=== PATIENT | female | born 1980 | race African-American/Black ===

== ENCOUNTER 2019-04-17 14:11 | Emergency (ER) | payer MEDICARE, MEDICAID ==
[~2019-04-17] VITALS: Ht 165.1 cm; Wt 63.6 kg
[~2019-04-17 14:11] MED LIST: PALI3TAB5 PO
[2019-04-17] MEDS ORDERED: OLANZapine 5mg rapidly disint. tablet PO ONE (15:20)
[2019-04-17 15:53] LABS: BASOPHILS # (AUTO) 0.1 X10'3 (0-0.2); BASOPHILS % (AUTO) 0.7 % (0-1); EOSINOPHILS % (AUTO) 0.3 % (0-6); HEMATOCRIT 41.7 % (35.0-45.0); HEMOGLOBIN 13.5 g/dl (12.0-16.0); LYMPHOCYTES # (AUTO) 1.5 X10'3 (1.1-4.8); LYMPHOCYTES % (AUTO) 14.2 % (21-51); MEAN CORPUSCULAR HEMOGLOBIN 23.8 PG (27.0-31.0); MEAN CORPUSCULAR HGB CONC 32.4 g/dL (33.0-36.5); MEAN CORPUSCULAR VOLUME 73.4 FL (78-98); MONOCYTES # (AUTO) 0.6 X10'3 (0-0.9); MONOCYTES % (AUTO) 5.9 % (2-12); NEUTROPHILS # (AUTO) 8.3 X10'3 (1.8-7.7); NEUTROPHILS % (AUTO) 78.9 % (42-75); PLATELET COUNT 358 X10'3 (140-440); RED BLOOD COUNT 5.68 X10'6 (4.20-5.60); RED CELL DISTRIBUTION WIDTH 18.3 % (11.5-14.5); WHITE BLOOD COUNT 10.5 X10'3 (4.5-11.0)
[2019-04-17 16:12] LABS: ALANINE AMINOTRANSFERASE 25 U/L (12-78); ALBUMIN 4.3 G/DL (3.4-5.0); ALBUMIN/GLOBULIN RATIO 0.8 (1.1-1.5); ALKALINE PHOSPHATASE 141 IU/L (46-116); ANION GAP 12 (8-16); ASPARTATE AMINO TRANSFERASE 18 U/L (10-37); BILIRUBIN,TOTAL 0.4 MG/DL (0.1-1.0); BLOOD UREA NITROGEN 12 MG/DL (7-18); CALCIUM 9.9 MG/DL (8.5-10.1); CHLORIDE 103 MMOL/L (99-107); CREATININE 0.86 MG/DL (0.40-0.90); GLUCOSE 103 MG/DL (70-104); SODIUM 142 MMOL/L (135-145); TOTAL CARBON DIOXIDE 27.1 MMOL/L (24-32); TOTAL PROTEIN 9.8 G/DL (6.4-8.2); eGFR 89 ML/MIN
[2019-04-17] MEDS ORDERED: magnesium oxide 400mg tablet PO ONE (16:15)
[2019-04-17] MEDS ORDERED: potassium Cl 20 mEq SR tablet PO ONE ×2 (16:15→16:35)
[2019-04-17 16:16] VITALS: BP 129/91
[2019-04-17 16:21] LABS: ETHANOL < 0.010 GM/DL (0.0-0.010)
[2019-04-17 16:29] LABS: MAGNESIUM 2.2 MG/DL (1.5-2.4)
[2019-04-17] MEDS ORDERED: UNABLE TO OBTAIN (20:55)
== END 2019-04-17 17:30 | disposition left against medical advice (07) ==
LOC: ER 14:12
DX: F23 Brief psychotic disorder (principal)
CPT/HCPCS: 36415; 80053; 80320; 82948; 83735; 84443; 85025; 99283

== ENCOUNTER 2019-04-17 18:44 | Emergency (ER) | payer MEDICARE, MEDICAID ==
[~2019-04-17] VITALS: Ht 160 cm; Wt 68.2 kg
--- NOTE | 2019-04-17 19:59 | NUR ---
PT LEFT LOBBY BEFORE BEING TAKEN BACK TO ROOM. PT THEN RETURNED APPROX 25 MINUTES LATER AND STUMBLED THROUGH THE LOBBY. PT THEN FELL AND HIT HEAD ON DOOR ACCORDING TO WITNESS REPORTS FROM THE LOBBY. C COLLAR PLACED ON PT AND MD AND CHARGE NURSE SACHIN MADE AWARE OF INCIDENT.
--- NOTE | 2019-04-17 20:05 | NUR ---
EDMD NICHOLE AND ROHINI MADE AWARE OF PT FALL. EDMD VARELA PLACED CT ORDERS.
[2019-04-17] MEDS ORDERED: LORazepam 2 mg/ml vial IM ONE (20:50)
[2019-04-17] MEDS ORDERED: haloperidol lactate 5mg/ml inj IM ONE (20:50)
[2019-04-17] MEDS ORDERED: UNABLE TO OBTAIN (20:55)
[2019-04-17 21:08] LABS: BASOPHILS # (AUTO) 0.1 X10'3 (0-0.2); BASOPHILS % (AUTO) 0.8 % (0-1); EOSINOPHILS % (AUTO) 0.1 % (0-6); HEMATOCRIT 39.1 % (35.0-45.0); HEMOGLOBIN 12.7 g/dl (12.0-16.0); LYMPHOCYTES # (AUTO) 2.6 X10'3 (1.1-4.8); LYMPHOCYTES % (AUTO) 21.1 % (21-51); MEAN CORPUSCULAR HEMOGLOBIN 23.7 PG (27.0-31.0); MEAN CORPUSCULAR HGB CONC 32.4 g/dL (33.0-36.5); MEAN CORPUSCULAR VOLUME 73.2 FL (78-98); MEAN PLATELET VOLUME 8.1 FL (7.4-10.4); MONOCYTES % (AUTO) 8.3 % (2-12); NEUTROPHILS # (AUTO) 8.6 X10'3 (1.8-7.7); NEUTROPHILS % (AUTO) 69.7 % (42-75); PLATELET COUNT 359 X10'3 (140-440); RED BLOOD COUNT 5.34 X10'6 (4.20-5.60); RED CELL DISTRIBUTION WIDTH 18.4 % (11.5-14.5); WHITE BLOOD COUNT 12.3 X10'3 (4.5-11.0)
[2019-04-17 21:24] LABS: eGFR 82 ML/MIN
[2019-04-17 21:33] LABS: ALANINE AMINOTRANSFERASE 22 U/L (12-78); ALBUMIN 4.1 G/DL (3.4-5.0); ALBUMIN/GLOBULIN RATIO 0.8 (1.1-1.5); ALKALINE PHOSPHATASE 136 IU/L (46-116); ANION GAP 16 (8-16); ASPARTATE AMINO TRANSFERASE 20 U/L (10-37); BILIRUBIN,TOTAL 0.4 MG/DL (0.1-1.0); BLOOD UREA NITROGEN 15 MG/DL (7-18); BUN/CREATININE RATIO 16.3 (6.6-38.0); CALCIUM 9.6 MG/DL (8.5-10.1); CHLORIDE 101 MMOL/L (99-107); CREATININE 0.92 MG/DL (0.40-0.90); ETHANOL < 0.010 GM/DL (0.0-0.010); GLUCOSE 127 MG/DL (70-104); SODIUM 142 MMOL/L (135-145); TOTAL CARBON DIOXIDE 25.2 MMOL/L (24-32); TOTAL PROTEIN 9.3 G/DL (6.4-8.2)
[2019-04-17] MEDS ORDERED: potassium Cl 10 mEq/100mL bag IV ONE (21:35)
[2019-04-17 21:36] LABS: ACETAMINOPHEN < 2.0 UG/ML (10-30)
--- NOTE | 2019-04-17 21:58 | NUR ---
Pt placed in green scrubs and belongings inventoried.
[2019-04-17] MEDS ORDERED: POTASSIUM BICARB 20meq eff tab 20 MEQ TABLET.EFF PO SCH (22:10)
--- NOTE | 2019-04-17 22:10 | NUR ---
Pt ambulatory with steady gait and with two person assist to the overflow area for further monitoring until mental health evaluation can be obtained.
--- NOTE | 2019-04-17 22:26 | NUR ---
Pt refused IV access, order for PO potassium obtained. Pt agreed to take PO potassium instead. Pt medicated as ordered with ativan and haldol.
[2019-04-17 22:30] LABS: URINE HCG NEGATIVE (NEG)
[2019-04-17 22:31] LABS: CLARITY,URINE SLIGHTLY CLOUDY (Clear); COLOR,URINE YELLOW (Yellow); GLUCOSE, URINE NEGATIVE (Neg); KETONES,URINE 15 mg/dl (Neg); LEUKOCYTE ESTERASE ,URINE NEGATIVE (Neg); NITRITES, URINE NEGATIVE (Neg); OCCULT BLOOD,URINE LARGE (Neg); PROTEIN,URINE 100 mg/dl (Neg); UROBILINOGEN,URINE 0.2 E.U/dL (0.2-1.0)
--- NOTE | 2019-04-17 22:39 | NUR ---
PT recieved in overflow at 2230. Pt drank 40 mEq effervescent. Potassium level currently 3.0. Urine was obtained and sent to lab.
[2019-04-17 22:42] LABS: URINE AMPHETAMINE SCREEN NEGATIVE (Neg); URINE BARBITUATE SCREEN NEGATIVE (Neg); URINE BENZODIAZEPINES SCREEN NEGATIVE (Neg); URINE CANNABINOID SCREEN NEGATIVE (Neg); URINE COCAINE SCREEN NEGATIVE (Neg); URINE METHADONE SCREEN NEGATIVE (Neg); URINE OPIATE SCREEN NEGATIVE (Neg); URINE PHENCYCLIDINE SCREEN NEGATIVE (Neg)
[2019-04-17 22:43] LABS: UA COLLECTION TYPE NON-SPECIFIED
[2019-04-17 22:44] LABS: BACTERIA,URINE 1+ /HPF (Neg); RBC,URINE 0-2 /HPF (0-2); SQUAMOUS EPITHELIAL CELL,UR MODERATE /LPF (FEW); WBC,URINE 0-4 /HPF (0-4)
--- NOTE | 2019-04-17 23:29 | NUR ---
Patient's packet was sent to [facility] 70[facility]
--- NOTE | 2019-04-18 00:56 | NUR ---
Pt woke up abruptly screaming. Pt was redirectable and calmed down once she was told she was in the hospital. Pt reassured, and fell back asleep.
--- NOTE | 2019-04-18 03:12 | NUR ---
Pt is sleeping on R side RR 12. No signs or symptoms of distress at this time.
--- NOTE | 2019-04-18 05:24 | NUR ---
Pt sleeping soundly on back. RR 14.
--- NOTE | 2019-04-18 06:32 | NUR ---
Pt is resting in bed peacefully at this time. No distress observed.
--- NOTE | 2019-04-18 06:47 | NUR ---
Pt is unable to answer questions for the [facility] Suicide Assessment. She denies SI
--- NOTE | 2019-04-18 08:40 | NUR ---
Pt is sitting up in bed eating breakfast. She answers some questions with one word answers "yees", or "No". No distress observed.
--- NOTE | 2019-04-18 08:55 | NUR ---
electronic service technician at bed side. Pt refusing lab draw.
--- NOTE | 2019-04-18 10:42 | NUR ---
[facility], Alisa, here and states that pt has a child. Called [facility] and this child is in their care. Pt is resting in bed peacefully on the right side. Will continue to monitor.
--- NOTE | 2019-04-18 10:46 | NUR ---
Breaking primary RN, pt is supine in bed, eyes closed, regular breathing present, no s/s of anxiety
--- NOTE | 2019-04-18 11:00 | NUR ---
TEO Cuellar from [facility] is at bedside attempting to assess patient.
--- NOTE | 2019-04-18 12:27 | NUR ---
Breaking primary RN, Pt is supine in bed, eyes closed, appears to be sleeping, regular, unlabored breathing present
--- NOTE | 2019-04-18 12:44 | NUR ---
Alisa from [facility] said that someone else from [facility] will be back to re eval patient as she would not talk to her,
--- NOTE | 2019-04-18 13:49 | NUR ---
Pt is laying in bed in the supine position resting peacefully. No distress observed. Pt was told that lunch is at her bedside, but Pt refuses to eat at this time.
--- NOTE | 2019-04-18 15:50 | NUR ---
Patient ambulated self to restroom. She is now resting in bed peacefully.
--- NOTE | 2019-04-18 17:50 | NUR ---
Patient is resting in bed peacefully at this time. No distress observed.
--- NOTE | 2019-04-18 19:17 | NUR ---
Pt is currently sleeping comfortably on her right side. She has visible rise and fall of her respirations. Pt does not show signs of pain or distress. She is in direct eyesight of the nursing station.
--- NOTE | 2019-04-18 21:03 | NUR ---
pt amb with slightly unsteady gait to restroom
--- NOTE | 2019-04-18 21:17 | NUR ---
pt agreed to have blood drawn, mine laborer at bedside
--- NOTE | 2019-04-18 23:27 | NUR ---
pt is sleeping, resp even and unlabored
[2019-04-19] MEDS ORDERED: potassium Cl 10 mEq/100mL bag IV ONE (01:00)
--- NOTE | 2019-04-19 08:19 | NUR ---
PT RESTING IN BED. BREAKFAST TRAY PROVIDED. PT WOKEN UP FOR A PRESSURE RECHECK. PT COOPERATIVE WITH ASSESSMENT. NO S/S OF DISTRESS OR PAIN.
--- NOTE | 2019-04-19 08:45 | NUR ---
[facility] AT BEDSIDE.
--- NOTE | 2019-04-19 10:26 | NUR ---
PT CONTINUES TO REST IN BED AFTER MAKING A PHONE CALL EARLIER. NO S/S OF DISTRESS OR PAIN AT THIS TIME. WILL CONTINUE TO MONITOR.
--- NOTE | 2019-04-19 11:28 | NUR ---
PT UP TO RESTROOM. INFORMED PT ON PLAN OF CARE. PT GOING TO BE PLACED ON 5150 ACCORDING TO [facility], LOOKING FOR PLACEMENT.
--- NOTE | 2019-04-19 13:16 | NUR ---
Pt given lunch tray. Pt is sitting upright on the bed eating lunch.
--- NOTE | 2019-04-19 14:11 | NUR ---
Pt resting comfortable on the bed with even and unlabored respirations. Pt remains under constant observation.
--- NOTE | 2019-04-19 15:10 | NUR ---
Pt resting, no complaints, continuing to monitor. Awaiting placement.
--- NOTE | 2019-04-19 16:10 | NUR ---
Pt is resting with even and unlabored respirations. Pt has no change in condition.
--- NOTE | 2019-04-19 16:50 | NUR ---
GAYATHRI Diaz from [facility] phoned to receive report and states that they will accept her for admission to the floor.
--- NOTE | 2019-04-19 17:33 | NUR ---
Pt is resting in a side-lying position of comfort on the bed with even and unlabored respirations. Pt has no distress noted.
[2019-04-19 17:45] VITALS: BP 118/83
--- NOTE | 2019-04-19 18:23 | NUR ---
Report given to GAYATHRI Real. Pt is to be transported to the [facility] shortly.
--- NOTE | 2019-04-19 19:45 | NUR ---
Received report and assumed care of patient from GAYATHRI López.
--- NOTE | 2019-04-19 20:17 | NUR ---
DR NATARAJAN MADE AWARE PATIENT HAS BEEN ACCEPTED TO [facility], TO ENTER DC ORDERS.
[2019-04-19] MEDS ORDERED: NO HOME MEDS (20:23)
[2019-04-27] MEDS ORDERED: PALI3TAB5 PO (14:14)
[2019-04-27] MEDS ORDERED: DOCU100C40 PO (14:14)
== END 2019-04-19 21:04 ==
LOC: ER 18:45
DX: F29 Unspecified psychosis not due to a substance or known physiological condition (principal); E87.6 Hypokalemia; R41.82 Altered mental status, unspecified
CPT/HCPCS: 36415; 70450; 72125; 80053; 80305; 80320; 80329; 81001; 81025; 84132; 84443; 85025; 93005; 96372; 99285; J1630; J2060; 99284

== ENCOUNTER 2020-09-11 08:01 | Emergency (ER) | payer MEDICARE, MEDICAID ==
[~2020-09-11] VITALS: Ht 165.1 cm; Wt 75.0 kg
[~2020-09-11 08:01] MED LIST changes: +DOCU100C40 PO; +NO HOME MEDS
[2020-09-11 08:53] LABS: BASOPHILS # (AUTO) 0.1 X10'3 (0-0.2); BASOPHILS % (AUTO) 0.7 % (0-1); EOSINOPHILS % (AUTO) 0.2 % (0-6); HEMATOCRIT 43.2 % (35.0-45.0); HEMOGLOBIN 13.4 g/dl (12.0-16.0); LYMPHOCYTES # (AUTO) 1.8 X10'3 (1.1-4.8); LYMPHOCYTES % (AUTO) 15.4 % (21-51); MEAN CORPUSCULAR HEMOGLOBIN 22.4 PG (27.0-31.0); MEAN CORPUSCULAR HGB CONC 30.9 g/dL (33.0-36.5); MEAN CORPUSCULAR VOLUME 72.4 FL (78-98); MEAN PLATELET VOLUME 7.9 FL (7.4-10.4); MONOCYTES # (AUTO) 0.8 X10'3 (0-0.9); MONOCYTES % (AUTO) 6.3 % (2-12); NEUTROPHILS # (AUTO) 9.3 X10'3 (1.8-7.7); NEUTROPHILS % (AUTO) 77.4 % (42-75); PLATELET COUNT 420 X10'3 (140-440); RED BLOOD COUNT 5.97 X10'6 (4.20-5.60); RED CELL DISTRIBUTION WIDTH 18.1 % (11.5-14.5)
[2020-09-11 09:04] LABS: URINE HCG NEGATIVE (NEG)
[2020-09-11 09:09] LABS: CLARITY,URINE SLIGHTLY CLOUDY (Clear); COLOR,URINE YELLOW (Yellow); GLUCOSE, URINE NEGATIVE (Neg); KETONES,URINE 15 mg/dl (Neg); LEUKOCYTE ESTERASE ,URINE NEGATIVE (Neg); NITRITES, URINE NEGATIVE (Neg); OCCULT BLOOD,URINE NEGATIVE (Neg); PROTEIN,URINE 100 mg/dl (Neg); UROBILINOGEN,URINE 0.2 E.U/dL (0.2-1.0)
[2020-09-11 09:10] LABS: UA COLLECTION TYPE CLN CATCH MIDSTREAM
[2020-09-11 09:11] LABS: SQUAMOUS EPITHELIAL CELL,UR MANY /LPF (FEW)
[2020-09-11 09:12] LABS: BACTERIA,URINE 2+ /HPF (Neg); RBC,URINE 0-2 /HPF (0-2); URINE AMPHETAMINE SCREEN NEGATIVE (Neg); URINE BARBITUATE SCREEN NEGATIVE (Neg); URINE BENZODIAZEPINES SCREEN NEGATIVE (Neg); URINE CANNABINOID SCREEN NEGATIVE (Neg); URINE COCAINE SCREEN NEGATIVE (Neg); URINE METHADONE SCREEN NEGATIVE (Neg); URINE OPIATE SCREEN NEGATIVE (Neg); URINE PHENCYCLIDINE SCREEN NEGATIVE (Neg); WBC,URINE 0-4 /HPF (0-4)
[2020-09-11 09:21] LABS: ALBUMIN 4.1 G/DL (3.4-5.0); ASPARTATE AMINO TRANSFERASE 4 U/L (10-37); BLOOD UREA NITROGEN 26 MG/DL (7-18); BUN/CREATININE RATIO 22.4 (6.6-38.0); CREATININE 1.16 MG/DL (0.40-0.90); ETHANOL < 0.010 GM/DL (0.0-0.010); GLUCOSE 108 MG/DL (70-104); POTASSIUM 3.4 MMOL/L (3.5-5.1); TOTAL CARBON DIOXIDE 19.9 MMOL/L (24-32); eGFR 62 ML/MIN
[2020-09-11 09:40] LABS: PLATELET ESTIMATE NORMAL
[2020-09-11 09:55] LABS: POLYCHROMASIA FEW
[2020-09-11 09:56] LABS: SCHISTOCYTES FEW
[2020-09-11 09:57] LABS: GIANT PLATELET FEW; LARGE PLATELETS FEW
[2020-09-11 09:58] LABS: ALANINE AMINOTRANSFERASE 20 U/L (12-78); ALBUMIN/GLOBULIN RATIO 0.7 (1.1-1.5); ALKALINE PHOSPHATASE 132 IU/L (46-116); ANION GAP 17 (8-16); CALCIUM 10.3 MG/DL (8.5-10.1); CHLORIDE 103 MMOL/L (99-107); SODIUM 140 MMOL/L (135-145)
[2020-09-11] MEDS ORDERED: normal saline 1000ML IV soln IVB ONE (10:20)
[2020-09-11] MEDS ORDERED: potassium Cl 20 mEq SR tablet PO STA (10:20)
--- NOTE | 2020-09-11 13:30 | NUR ---
PACKET FAXED TO [facility]
--- NOTE | 2020-09-11 16:15 | NUR ---
Pt was evaluated by Black from [facility] and placed on 5150
--- NOTE | 2020-09-11 18:30 | NUR ---
Report given to Nikos from [facility] in [place] for possible placement. Facility requesting updated med rec and covid swab.
--- NOTE | 2020-09-11 19:14 | NUR ---
Pt is laying in bed resting quietly. Pt has thought blocking, takes several minutes to respond to questions, and answers questions minimally.
--- NOTE | 2020-09-11 19:31 | NUR ---
DC'd IV, pt tolerated well.
--- NOTE | 2020-09-12 00:56 | NUR ---
pt asleep in bed, resting quietly. rr even and unlabored no s/s distress.
--- NOTE | 2020-09-12 03:30 | NUR ---
pt woke and yelled out "Jehovah!" and went back to sleep.
--- NOTE | 2020-09-12 06:39 | NUR ---
Patient appears to be sleeping prone. No distress observed. Continue to monitor.
--- NOTE | 2020-09-12 07:55 | NUR ---
Patient sleeping. No distress observed. Continue to monitor.
--- NOTE | 2020-09-12 08:55 | NUR ---
Patient awoke and stood up and started walking with an unsteady gait the wrong way to the restroom. RN and Tech jumped up to assist patient. RN held patient's scrub top and pants from the back so she wouldn't fall. Patient was given the walker but would not use it. Patient is malodorous. RN and tech held onto patient and directed her to the BR. At one point patient intentionally attempted to fall back/sit down but RN and Tech did not let her go to the ground and pulled her up. RN and tech went into the BR with patient. RN assisted patient is pulling down her pants and sitting on the toilet. Patient urinated a large amount. Patient wiped herself and stood to pull up her pants. RN and tech assisted patient to wash her hands and face. RN and tech walked patient back to her room. Patient sat on the side of the bed and RN assisted patient in getting her breakfast ready. RN gave patient juice but she refused to drink. Patient took one bite of her eggs and then laid down. In the entire time patient was up she just said "no" to apple juice and "no" to salt. Those were the only time patient spoke. Reported to SAMANTHA Clark [facility]. Continue to monitor.
[2020-09-12] MEDS ORDERED: OLANZapine 5mg rapidly disint. tablet PO ONE (09:10)
--- NOTE | 2020-09-12 10:22 | NUR ---
Patient's lab drawn by hospital librarian, Karly. Patient allowed and RN also at bedside. Patient answered her questions appropriately. Continue to monitor.
--- NOTE | 2020-09-12 10:40 | NUR ---
Patient appears to be doing better. Patient ambulatory, steady gait to BR with bath wipes in hand. No distress observed. Continue to monitor.
[2020-09-12 10:47] LABS: ALBUMIN 3.2 G/DL (3.4-5.0); ANION GAP 11 (8-16); BLOOD UREA NITROGEN 13 MG/DL (7-18); BUN/CREATININE RATIO 18.8 (6.6-38.0); CALCIUM 9.1 MG/DL (8.5-10.1); CHLORIDE 106 MMOL/L (99-107); CREATININE 0.69 MG/DL (0.40-0.90); GLUCOSE 149 MG/DL (70-104); POTASSIUM 3.7 MMOL/L (3.5-5.1); SODIUM 139 MMOL/L (135-145); TOTAL CARBON DIOXIDE 22.3 MMOL/L (24-32); eGFR > 90 ML/MIN
--- NOTE | 2020-09-12 12:30 | NUR ---
Patient sleeping on left side. No distress observed. Continue to monitor.
--- NOTE | 2020-09-12 13:45 | NUR ---
Patient is awake and RN walked over to speak to patient. RN advised patient that her lunch tray is on her bedside table. RN asked patient if she was ready to eat but patient did not respond but looked at RN. RN advised patient that she will assist her and re-heat her food when she is ready. No response. Continue to monitor.
--- NOTE | 2020-09-12 14:50 | NUR ---
Patient got up and sitting on the side of her bed. RN went to push fluids since patient has hardly eaten today and only drank her apple juice this morning. Patient saw RN and got up and started walking around with unsteady gait. Then patient mad a run for it down the nick by [facility] office. [employer] ran after her and patient met 2 security guards in the nick way who walked patient back. Patient is no laying in bed awake but her eyes are closed. Continue to monitor.
--- NOTE | 2020-09-12 16:55 | NUR ---
RN at bedside encouraging fluid. Patient drank 2 sips of apple juice and wouldn't drink anything else. RN gave patient ice water at patient's request and patient drank about 8 oz worth. Will continue to encourage fluid. Continue to monitor.
--- NOTE | 2020-09-12 19:16 | NUR ---
The patient is resting on her bed and refused her evening meal. She gives no eye contact and her affect is very flat. She gives minimal verbal replies to guestions being asked.
[2020-09-12] MEDS ORDERED: OLANZapine 5mg rapidly disint. tablet PO SCH (20:00)
[2020-09-12 21:05] VITALS: BP 142/105
[2020-09-12] MEDS ORDERED: OLAN5TAB3 PO (21:32)
== END 2020-09-12 21:07 | disposition home or self-care (01) ==
LOC: ER 08:01
DX: E86.0 Dehydration (principal); F20.9 Schizophrenia, unspecified; E11.9 Type 2 diabetes mellitus without complications; Z79.899 Other long term (current) drug therapy
CPT/HCPCS: 36415; 80048; 80053; 80305; 80320; 81001; 81025; 84439; 84443; 85008; 85025; 87635; 96360; 96361; 99284; C9803; J7030